=== PATIENT | male | born 1950 | race Two or more races ===

== ENCOUNTER → 2019-06-11 | Outpatient (CLI) | payer MEDICARE ==
[~2019-06-11] MED LIST: ACET325T14 PO; AMLO10TA8 PO; ASPI-496 PO; ATOR40TA78 PO; CLOP75TA PO; FURO20TA3 PO; GLIP5TAB10 PO; LISI-170 PO; METO50TA82 PO; POTASSIUM CL PO; TRAM50TA2 PO
== END | disposition home or self-care (01) ==
LOC: STAR 11:08
PROVIDERS: ATTEND Surgery
DX: Z01.818 Encounter for other preprocedural examination (principal)
CPT/HCPCS: 36415; 80053; 85025; 85610; 85730; 93005

== ENCOUNTER 2019-06-24 07:51 | Inpatient (IN) | payer MEDICARE ==
[2019-06-11 12:38] LABS: BASOPHILS # (AUTO) 0.03 x10^3/uL (0-0.1); BASOPHILS % (AUTO) 0 % (0-1); EOSINOPHILS # (AUTO) 0.27 x10^3/uL (0-0.4); EOSINOPHILS % (AUTO) 3 % (1-7); LYMPHOCYTES # (AUTO) 1.16 x10^3/uL (1-3.4); LYMPHOCYTES % (AUTO) 14 % (22-44); MD NO; MEAN CORPUSCULAR HEMOGLOBIN 28.1 pg (27.5-34.5); MEAN CORPUSCULAR HGB CONC 32.8 g/dL (33.2-36.2); MEAN CORPUSCULAR VOLUME 85.6 fL (81-97); MEAN PLATELET VOLUME 7.8 fL (7.4-10.4); MONOCYTES # (AUTO) 0.76 x10^3/uL (0.2-0.8); MONOCYTES % (AUTO) 9 % (2-9); NEUTROPHILS # (AUTO) 6.12 x10^3/uL (1.8-6.8); NEUTROPHILS % (AUTO) 73 % (42-75); PLATELET COUNT 278 x10^3/uL (130-400); RED BLOOD COUNT 4.92 x10^6/uL (4.38-5.82); RED CELL DISTRIBUTION WIDTH 15.3 % (9.4-14.8)
[2019-06-11 12:41] LABS: INTERNATIONAL NORMALIZED RATIO 1.03 (0.93-1.1); PROTHROMBIN TIME 10.9 Seconds (9.6-11.5)
[2019-06-11 13:21] LABS: ANION GAP 6 mmol/L (5-15); CALCIUM 8.7 mg/dL (8.5-10.1); CHLORIDE 108 mmol/L (98-107)
[2019-06-11 13:25] LABS: ALANINE AMINOTRANSFERASE 30 U/L (12-78); ALBUMIN 3.8 g/dL (3.4-5.0); ALKALINE PHOSPHATASE 90 U/L (45-117); BILIRUBIN,TOTAL 0.8 mg/dL (0.2-1.0); TOTAL PROTEIN 8.3 g/dL (6.4-8.2)
[~2019-06-24] VITALS: Ht 152.4 cm; Wt 82.4 kg
[2019-06-24] MEDS ORDERED: LACTATED RINGERS 1,000 ML IV SCH (08:13)
[2019-06-24 08:22] VITALS: BP 139/72
[2019-06-24] MEDS ORDERED: LIDOCAINE-MPF 1%, 2ML INFIL ONE (08:30)
[2019-06-24] MEDS ORDERED: MIDAZOLAM 1 MG/ML, 2ML ONE (09:14)
[2019-06-24] MEDS ORDERED: FENTANYL PF 100 MCG/2ML ONE ×3 (09:14→12:39)
[2019-06-24] MEDS ORDERED: BUPIVACAINE/PF-EPI 0.5% 1:200K ONE (09:44)
[2019-06-24] MEDS ORDERED: GABAPENTIN 300 MG CAPSULE PO STA (09:50)
[2019-06-24] MEDS ORDERED: ACETAMINOPHEN 500 MG TABLET PO STA (09:50)
[2019-06-24] MEDS ORDERED: ACETAMINOPHEN 500 MG TABLET ONE (09:53)
[2019-06-24] MEDS ORDERED: GABAPENTIN 300 MG CAPSULE ONE (09:54)
[2019-06-24] MEDS ORDERED: CEFOTETAN 2 GM ONE (10:02)
[2019-06-24] MEDS ORDERED: PHENYLEPHRINE 10 MG/ML ONE (10:02)
[2019-06-24] MEDS ORDERED: ROCURONIUM 10MG/ML,5ML ONE (10:34)
[2019-06-24] MEDS ORDERED: ONDANSETRON 2MG/ML, 2ML ONE (10:34)
[2019-06-24] MEDS ORDERED: NEOSTIGMINE 1 MG/ML, 10ML ONE (10:34)
[2019-06-24] MEDS ORDERED: PROPOFOL 10 MG/ML, 20ML ONE (10:34)
[2019-06-24] MEDS ORDERED: GLYCOPYRROLATE 0.2MG/1ML, 5ML ONE (10:34)
[2019-06-24] MEDS ORDERED: SUCCINYLCHOLINE 20 MG/ML, 10ML ONE (10:34)
[2019-06-24] MEDS ORDERED: DEXAMETHASONE 4 MG/ML, 1ML ONE (10:34)
[2019-06-24] MEDS ORDERED: PROMETHAZINE 25 MG/ML, 1ML IV PRN (11:00)
[2019-06-24] MEDS ORDERED: MEPERIDINE/PF 25MG/ML,1ML IVPush PRN (11:00)
[2019-06-24] MEDS ORDERED: HYDROmorphone 1 MG/ML, 1ML INJ IVPush PRN (11:00)
[2019-06-24] MEDS ORDERED: OXYcodone 5 MG/5 ML ORAL.SOL UDC ONE (12:39)
[2019-06-24] MEDS: FENTANYL PF 100 MCG/2ML IV PRN ×2 (12:42→12:55)
[2019-06-24] MEDS ORDERED: MEPERIDINE/PF 25MG/ML,1ML ONE (13:36)
[2019-06-24 14:04] VITALS: BP 108/60
[2019-06-24] MEDS ORDERED: FENTANYL PF 100 MCG/2ML IV PRN (15:00)
[2019-06-24] MEDS: KETOROLAC 30 MG/1 ML IV SCH ×2 (15:51→21:08)
[2019-06-24] MEDS: INSULIN REGULAR, HUMAN 100 UNIT/ML 3ML VIAL LOW DOSE SS SQ-INSULIN SCH ×2 (16:42→21:09)
[2019-06-24] MEDS: OXYcodone IR 5MG TABLET PO PRN (16:43)
[2019-06-24 17:39] VITALS: BP 126/74
[2019-06-24] MEDS: METOPROLOL TARTRATE 50 MG TAB PO SCH (17:40)
[2019-06-24 19:52] VITALS: BP 122/67
[2019-06-24] MEDS: ATORVASTATIN 40 MG TABLET PO SCH (21:08)
[2019-06-25 00:04] VITALS: BP 126/77
[2019-06-25] MEDS: ACETAMINOPHEN 325 MG TABLET PO PRN ×3 (02:42→19:10)
[2019-06-25] MEDS: LACTATED RINGERS 1,000 ML IV SCH ×3 (02:43→22:40)
[2019-06-25] MEDS: KETOROLAC 30 MG/1 ML IV SCH ×4 (02:43→21:38)
[2019-06-25 04:49] VITALS: BP 126/66
[2019-06-25 05:32] LABS: BASOPHILS % (AUTO) 0 % (0-1); EOSINOPHILS % (AUTO) 0 % (1-7); LYMPHOCYTES # (AUTO) 0.49 x10^3/uL (1-3.4); LYMPHOCYTES % (AUTO) 3 % (22-44); MD NO; MEAN CORPUSCULAR HEMOGLOBIN 27.9 pg (27.5-34.5); MEAN CORPUSCULAR VOLUME 84.6 fL (81-97); MEAN PLATELET VOLUME 8.2 fL (7.4-10.4); MONOCYTES # (AUTO) 1.28 x10^3/uL (0.2-0.8); MONOCYTES % (AUTO) 8 % (2-9); NEUTROPHILS # (AUTO) 14.02 x10^3/uL (1.8-6.8); NEUTROPHILS % (AUTO) 89 % (42-75); PLATELET COUNT 224 x10^3/uL (130-400); RED BLOOD COUNT 4.56 x10^6/uL (4.38-5.82)
[2019-06-25 05:52] LABS: ANION GAP 5 mmol/L (5-15); CALCIUM 8.5 mg/dL (8.5-10.1); CHLORIDE 109 mmol/L (98-107); CREATININE 1.06 mg/dL (0.7-1.3)
[2019-06-25] MEDS: METOPROLOL TARTRATE 50 MG TAB PO SCH ×2 (06:29→18:21)
[2019-06-25] MEDS: INSULIN REGULAR, HUMAN 100 UNIT/ML 3ML VIAL LOW DOSE SS SQ-INSULIN SCH ×4 (06:33→20:27)
[2019-06-25 07:35] VITALS: BP 120/67
[2019-06-25] MEDS: ENOXAPARIN 40 MG/0.4 ML SQ SCH (09:10)
[2019-06-25] MEDS: AMLODIPINE 10 MG TAB PO SCH (09:10)
[2019-06-25] MEDS: LISINOPRIL 20 MG TABLET PO SCH (09:10)
[2019-06-25] MEDS: OXYcodone IR 5MG TABLET PO PRN ×3 (09:12→21:59)
[2019-06-25 12:23] VITALS: BP 122/66
[2019-06-25 18:00] VITALS: BP 136/68
[2019-06-25 19:15] VITALS: BP 153/78
[2019-06-25] MEDS: ATORVASTATIN 40 MG TABLET PO SCH (20:26)
[2019-06-26 01:34] VITALS: BP 123/64
[2019-06-26] MEDS: KETOROLAC 30 MG/1 ML IV SCH ×2 (04:12→10:32)
[2019-06-26 05:40] LABS: BASOPHILS % (AUTO) 0 % (0-1); EOSINOPHILS % (AUTO) 0 % (1-7); LYMPHOCYTES # (AUTO) 0.83 x10^3/uL (1-3.4); LYMPHOCYTES % (AUTO) 6 % (22-44); MD NO; MEAN CORPUSCULAR HEMOGLOBIN 27.4 pg (27.5-34.5); MEAN CORPUSCULAR HGB CONC 32.2 g/dL (33.2-36.2); MEAN CORPUSCULAR VOLUME 84.9 fL (81-97); MEAN PLATELET VOLUME 8.6 fL (7.4-10.4); MONOCYTES # (AUTO) 1.25 x10^3/uL (0.2-0.8); MONOCYTES % (AUTO) 10 % (2-9); NEUTROPHILS # (AUTO) 11.03 x10^3/uL (1.8-6.8); NEUTROPHILS % (AUTO) 84 % (42-75); PLATELET COUNT 225 x10^3/uL (130-400); RED BLOOD COUNT 4.12 x10^6/uL (4.38-5.82); RED CELL DISTRIBUTION WIDTH 15.4 % (9.4-14.8)
[2019-06-26] MEDS: INSULIN REGULAR, HUMAN 100 UNIT/ML 3ML VIAL LOW DOSE SS SQ-INSULIN SCH ×4 (06:33→20:18)
[2019-06-26 06:37] VITALS: BP 147/81
[2019-06-26] MEDS: METOPROLOL TARTRATE 50 MG TAB PO SCH ×2 (06:37→18:40)
[2019-06-26 07:47] VITALS: BP 157/71
[2019-06-26] MEDS: AMLODIPINE 10 MG TAB PO SCH (08:57)
[2019-06-26] MEDS: ACETAMINOPHEN 325 MG TABLET PO PRN ×2 (08:57→20:27)
[2019-06-26] MEDS: OXYcodone IR 5MG TABLET PO PRN ×2 (08:57→14:15)
[2019-06-26] MEDS: LISINOPRIL 20 MG TABLET PO SCH (08:57)
[2019-06-26] MEDS: ENOXAPARIN 40 MG/0.4 ML SQ SCH (08:58)
[2019-06-26] MEDS: LACTATED RINGERS 1,000 ML IV SCH (12:00)
[2019-06-26 14:47] VITALS: BP 165/71
[2019-06-26 15:49] VITALS: BP 172/72
[2019-06-26] MEDS ORDERED: NITROGLYCERIN 0.4 MG BOTTLE (25 TABS) SL ONE ×2 (15:50→15:51)
[2019-06-26] MEDS ORDERED: MORPHINE SULFATE 4 MG/ML, 1ML IVPush ONE ×3 (15:55→16:00)
[2019-06-26] MEDS ORDERED: MORPHINE SULFATE 4 MG/ML, 1ML ONE (15:56)
[2019-06-26 16:37] LABS: TROPONIN I < 0.015 ng/mL (0.000-0.045)
[2019-06-26] MEDS ORDERED: NITROGLYCERIN 0.4 MG/SPRAY SL PRN (17:00)
[2019-06-26] MEDS ORDERED: NITROGLYCERIN 0.4 MG BOTTLE (25 TABS) SL PRN (17:00)
[2019-06-26] MEDS ORDERED: OMNIPAQUE 350 MG/ML, 100ML BOTTLE ONE (18:05)
[2019-06-26 19:21] VITALS: BP 138/69
[2019-06-26] MEDS: ATORVASTATIN 40 MG TABLET PO SCH (20:24)
[2019-06-26 22:43] LABS: TROPONIN I < 0.015 ng/mL (0.000-0.045)
[2019-06-27 02:01] VITALS: BP 165/75
[2019-06-27 05:04] LABS: MEAN CORPUSCULAR HEMOGLOBIN 27.8 pg (27.5-34.5); MEAN CORPUSCULAR HGB CONC 32.6 g/dL (33.2-36.2); MEAN CORPUSCULAR VOLUME 85.3 fL (81-97); MEAN PLATELET VOLUME 8.3 fL (7.4-10.4); PLATELET COUNT 246 x10^3/uL (130-400); RED BLOOD COUNT 4.86 x10^6/uL (4.38-5.82); RED CELL DISTRIBUTION WIDTH 15.8 % (9.4-14.8)
[2019-06-27] MEDS: METOPROLOL TARTRATE 50 MG TAB PO SCH ×2 (05:10→18:17)
[2019-06-27 05:15] LABS: ALBUMIN 3.4 g/dL (3.4-5.0); ANION GAP 8 mmol/L (5-15); CALCIUM 8.9 mg/dL (8.5-10.1); CHLORIDE 106 mmol/L (98-107)
[2019-06-27 05:23] LABS: ALANINE AMINOTRANSFERASE 28 U/L (12-78); ALKALINE PHOSPHATASE 83 U/L (45-117); BILIRUBIN,TOTAL 1.3 mg/dL (0.2-1.0); CHOL/HDL RATIO 2.2; CHOLESTEROL, TOTAL 110 mg/dL (140-239); CREATININE 0.93 mg/dL (0.7-1.3); HDL CHOL % 46 % (26-37); HDL CHOLESTEROL (DIRECT) 51 mg/dL (40-60); LDL CHOLESTEROL,CALCULATED 43 mg/dL (54-169); LDL/HDL RATIO 0.8 (0.5-3.0); TRIGLYCERIDES 78 mg/dL (50-200); TROPONIN I < 0.015 ng/mL (0.000-0.045); VLDL CHOLESTEROL 16 mg/dL (0-25)
[2019-06-27 05:54] LABS: BASOPHILS # (AUTO) 0.03 x10^3/uL (0-0.1); BASOPHILS % (AUTO) 0 % (0-1); EOSINOPHILS # (AUTO) 0.14 x10^3/uL (0-0.4); EOSINOPHILS % (AUTO) 1 % (1-7); LYMPHOCYTES % (AUTO) 10 % (22-44); MD SCAN; MONOCYTES # (AUTO) 1.48 x10^3/uL (0.2-0.8); MONOCYTES % (AUTO) 12 % (2-9); NEUTROPHILS # (AUTO) 9.62 x10^3/uL (1.8-6.8); NEUTROPHILS % (AUTO) 77 % (42-75)
[2019-06-27 06:33] VITALS: BP 159/78
[2019-06-27] MEDS: INSULIN REGULAR, HUMAN 100 UNIT/ML 3ML VIAL LOW DOSE SS SQ-INSULIN SCH ×3 (07:00→16:00)
[2019-06-27] MEDS ORDERED: LISINOPRIL 20 MG TABLET PO SCH (09:00)
[2019-06-27] MEDS ORDERED: REGADENOSON 0.4 MG/5 ML SYRINGE ONE (10:04)
[2019-06-27] MEDS: AMLODIPINE 10 MG TAB PO SCH (11:07)
[2019-06-27] MEDS: ENOXAPARIN 40 MG/0.4 ML SQ SCH (11:08)
[2019-06-27 12:53] VITALS: BP 147/79
== END 2019-06-27 20:49 | disposition home or self-care (01) | DRG 335 ==
LOC: ORIP 07:51 → 4NE 13:56 → 5SO 06-26 16:30
PROVIDERS: ADMIT Surgery; ATTEND Internal Medicine
PROC: 0DNW0ZZ Release Peritoneum, Open Approach (ICD-10-PCS; 2019-06-24)
PROC: 0DSN0ZZ Reposition Sigmoid Colon, Open Approach (ICD-10-PCS; principal; 2019-06-24 10:00)
DX: Z43.3 Encounter for attention to colostomy (principal); G93.41 Metabolic encephalopathy; I50.32 Chronic diastolic (congestive) heart failure; K56.7 Ileus, unspecified; K21.9 Gastro-esophageal reflux disease without esophagitis; E78.5 Hyperlipidemia, unspecified; D63.8 Anemia in other chronic diseases classified elsewhere; E11.65 Type 2 diabetes mellitus with hyperglycemia; K66.0 Peritoneal adhesions (postprocedural) (postinfection); I16.0 Hypertensive urgency; I25.119 Atherosclerotic heart disease of native coronary artery with unspecified angina pectoris; I11.0 Hypertensive heart disease with heart failure; F41.0 Panic disorder [episodic paroxysmal anxiety]; Z88.6 Allergy status to analgesic agent; Z98.49 Cataract extraction status, unspecified eye; Z86.73 Personal history of transient ischemic attack (TIA), and cerebral infarction without residual deficits; Z79.84 Long term (current) use of oral hypoglycemic drugs; Z95.5 Presence of coronary angioplasty implant and graft; I25.2 Old myocardial infarction; Z79.02 Long term (current) use of antithrombotics/antiplatelets; Z79.82 Long term (current) use of aspirin; Z79.899 Other long term (current) drug therapy
CPT/HCPCS: 36415; 70450; 71045; 71275; 74018; 78452; 80048; 80053; 80061; 82962; 84443; 84484; 85025; 85610; 85730; 86850; 86900; 88305; 93005; 93017; 93306; 93880; G0378; J1100; J1650; J1815; J1885; J2250; J2405; J2704; J2710; J2785; J3010; Q9967; A9502; C1781; C9898; J0330; J2175; J2270; J2370; J3490; J7120